=== PATIENT | male | born 1985 | race Caucasian/White ===

== ENCOUNTER 2017-09-26 14:19 | Emergency (ER) | payer OTHER ==
[~2017-09-26] VITALS: Ht 172.7 cm; Wt 79.4 kg
[~2017-09-26 14:19] MED LIST: Crutch1 EACH MISC; IBUP600 PO; IBUP800 PO; Norco 5-325 Ta1 EACH PO; OMEP40CA12 PO; Percocet 5-3251 EACH PO
[2017-09-26] MEDS ORDERED: IBUP800 PO (16:02)
[2017-09-26] MEDS ORDERED: CRUTCH2 XX (16:07)
== END 2017-09-26 16:10 | disposition home or self-care (01) ==
LOC: ER 14:19
DX: S81.811A Laceration without foreign body, right lower leg, initial encounter (principal); Z79.899 Other long term (current) drug therapy; F17.200 Nicotine dependence, unspecified, uncomplicated; W01.198A Fall on same level from slipping, tripping and stumbling with subsequent striking against other object, initial encounter
CPT/HCPCS: 12001; 73590; 96372; 99283; J1885

== ENCOUNTER 2018-02-06 19:01 | Emergency (ER) | payer OTHER ==
[~2018-02-06] VITALS: Ht 175.3 cm; Wt 79.4 kg
[~2018-02-06 19:01] MED LIST changes: +CRUTCH2 XX
[2018-02-06] MEDS ORDERED: Acetaminophen-1 EAC1 PO (20:13)
== END 2018-02-06 20:32 ==
LOC: ER 19:01
DX: S52.601A Unspecified fracture of lower end of right ulna, initial encounter for closed fracture (principal); S52.501A Unspecified fracture of the lower end of right radius, initial encounter for closed fracture; W18.2XXA Fall in (into) shower or empty bathtub, initial encounter; Z79.899 Other long term (current) drug therapy; F17.200 Nicotine dependence, unspecified, uncomplicated
CPT/HCPCS: 25605; 73090; 99283-25; J7030

== ENCOUNTER → 2022-04-26 | Outpatient (CLI) | payer OTHER ==
[~2022-04-26] MED LIST changes: +Acetaminophen-1 EAC1 PO; +DOXY100 PO; +NAPR500 PO; +ONDA4ODT MM
== END | disposition home or self-care (01) ==
LOC: LAB 18:36 → LAB SHORT 18:36
DX: L08.9 Local infection of the skin and subcutaneous tissue, unspecified (principal)
CPT/HCPCS: 86592; 87070; 87077; 87147; 87186; 87205

== ENCOUNTER 2022-04-29 16:02 | Emergency (ER) | payer OTHER ==
[~2022-04-29] VITALS: Ht 172.7 cm; Wt 77.1 kg
[~2022-04-29 16:02] MED LIST changes: -DOXY100 PO; -NAPR500 PO; -ONDA4ODT MM
[2022-04-29] MEDS ORDERED: NAPR500 PO (16:51)
[2022-04-29] MEDS ORDERED: ONDA4ODT MM (16:51)
[2022-04-29] MEDS ORDERED: DOXY100 PO (16:51)
== END 2022-04-29 17:01 | disposition home or self-care (01) ==
LOC: ER 16:02
DX: L03.317 Cellulitis of buttock (principal); B95.62 Methicillin resistant Staphylococcus aureus infection as the cause of diseases classified elsewhere; F17.200 Nicotine dependence, unspecified, uncomplicated
CPT/HCPCS: 99283; A9270

== ENCOUNTER 2022-09-29 17:30 | Emergency (ER) | payer OTHER ==
[~2022-09-29] VITALS: Ht 175.3 cm; Wt 77.1 kg
[~2022-09-29 17:30] MED LIST changes: +DOXY100 PO; +NAPR500 PO; +ONDA4ODT MM
[2022-09-29 18:31] LABS: BASOPHILS ABSOLUTE AUTO 0.02 K/mm3 (0.00-0.23); BASOPHILS PERCENT AUTO 0 % (0-2); EOSINOPHILS ABSOLUTE AUTO 0.15 K/mm3 (0.00-0.68); EOSINOPHILS PERCENT AUTO 3 % (0-6); Hematocrit 37.6 % (37.0-53.0); Hemoglobin 12.6 g/dL (13.5-17.5); IMMATURE GRAN ABSOLUTE AUTO 0.01 K/mm3 (0.00-0.10); IMMATURE GRAN PERCENT AUTO 0 % (0-1); LYMPHOCYTES PERCENT AUTO 35 % (21-46); MONOCYTES ABSOLUTE AUTO 0.47 K/mm3 (0.16-1.47); MONOCYTES PERCENT AUTO 10 % (4-13); Mean Corpuscular HGB 34.1 pg (26.0-34.0); Mean Corpuscular HGB Conc 33.5 g/dL (31.5-36.5); Mean Corpuscular Volume 102 fL (80-100); Mean Platelet Volume 9.9 fL (9.1-12.4); NEUTROPHILS ABSOLUTE AUTO 2.47 K/mm3 (1.96-9.15); NEUTROPHILS PERCENT AUTO 51 % (41-73); Platelet Count 178 K/mm3 (150-400); RDW Coefficient Variation 11.9 % (11.7-14.2); RDW Standard Deviation 44.5 fL (35.1-46.3); White Blood Cell Count 4.82 K/mm3 (4.00-11.30)
[2022-09-29 18:50] LABS: Albumin, Blood 3.2 g/dL (3.4-5.0); Albumin/Globulin Ratio 0.7 (0.8-1.8); Bilirubin, Total 0.2 mg/dL (0.1-1.0); Bun/Creatinine Ratio 13.9 (12.0-20.0); Creatinine, Blood 0.65 mg/dL (0.60-1.20); Globulin, Blood 4.3 g/dL (2.2-4.0); Potassium, Blood 3.7 mmol/L (3.5-5.5); Total Protein, Blood 7.5 g/dL (6.4-8.2)
[2022-09-29] MEDS ORDERED: Pepcid40 MG PO (21:53)
== END 2022-09-29 22:24 | disposition home or self-care (01) ==
LOC: ER 17:30
PROVIDERS: Physician Assistant
DX: R07.9 Chest pain, unspecified (principal); F10.139 Alcohol abuse with withdrawal, unspecified; Z79.899 Other long term (current) drug therapy; F17.200 Nicotine dependence, unspecified, uncomplicated
CPT/HCPCS: 36415; 71046; 80053; 84484; 85025; 93005; 93010; 99285-25; J1885; J2405